=== PATIENT | female | born 1970 | race Caucasian/White ===

== ENCOUNTER 2023-07-02 16:30 | Emergency (ER) | payer BC, SELFPAY ==
[2023-07-02 16:33] VITALS: BP 121/74; PULSE 74; RESP 16; TEMP 36.1; O2SAT 95
--- NOTE | 2023-07-02 17:03 | ED.DENTAL ---
HPI - Dental/Oral General Chief complaint: Dental/Oral Stated complaint: Dental pain Time Seen by Provider: 07/02/23 17:02 Source: patient Mode of arrival: ambulatory Limitations: no limitations History of Present Illness HPI Narrative: Patient is a pleasant 52-year-old female with past medical history as noted below who presents emergency department today ambulatory with a steady gait for evaluation of left lower dental pain it is causing pain to her jaw and face. It started 2 days ago. States that she thinks she has an infected tooth. Denies any fever chills. Denies nausea or vomiting. Denies any chest pain, shortness of breath, headache, dizziness. Related Data Allergies Allergy/AdvReac Type Severity Reaction Status Date / Time No Known Allergies Allergy Verified 07/02/23 16:55 Review of Systems Review of Systems: All systems reviewed & are unremarkable except as noted in HPI and below Exam Narrative: GENERAL: Well-appearing, well-nourished, and in no acute distress. HEAD: Normocephalic, atraumatic. EYES: PERRLA ENT: there is significant gingival erythema/edema to the left lower 2nd molar with small abscess noted. no drainage. swallowing with ease. mild left lower facial/jaw swelling. dental cavity noted to molar. NECK: Supple. no adenopathy CHEST: Clear to auscultation. No respiratory distress. HEART: Regular rate and rhythm. SKIN: Warm, dry, no rash. NEURO: No focal deficits. Alert and oriented x3. PSYCH: Normal mood and affect. Course Vital Signs Vital signs: Vital Signs Temperature 97.0 F L 07/02/23 16:33 Pulse Rate 74 07/02/23 16:33 Respiratory Rate 16 07/02/23 16:33 Blood Pressure 121/74 07/02/23 16:33 Pulse Oximetry 95 07/02/23 16:33 Temperature 97.0 F L 07/02/23 16:33 Pulse Rate 74 07/02/23 16:33 Respiratory Rate 16 07/02/23 16:33 Blood Pressure 121/74 07/02/23 16:33 Pulse Oximetry 95 07/02/23 16:33 MDM - Dental/Oral MDM Narrative Medical decision making narrative: Patient with worsening dental pain and dental decay. small abscess noted. No systemic signs or symptoms. Antibiotics course provided.Verbal consent obtained from the patient after risks and benefits were explained. topical viscous lidocaine administered prior to I&D. small amount of bloody drainage noted, no purulent drainage noted. sterile technique maintained throughout. Follow-up instructions given to see dentist. discussed norco and only take for severe pain and that this can make her drowsy and be addictive to not drink, drive, or operate heavy machinery while taking it. Patient is nontoxic in appearance. Stable re-evaluation exam just before discharge. Patient in no acute distress. Vitals within normal limits. discussed return precautions with the patient including all the red flag signs or symptoms of when to return the patient. The patient verbalized understanding and was agreeable with discharge and close follow-up Differential Diagnosis Differential diagnosis: Likely gingival abscess, dental caries and dental abscess Medical Records Attestation: I reviewed the patient's medical records. Discharge Plan Discharge Clinical Impression: Dental infection, Pain, dental, Dental abscess Patient Disposition: Home, Self-Care Condition: Stable Instructions: Antibiotic Form, Dental Abscess (ED), Toothache (ED) Additional Instructions: Apply 2-5 mLs of viscous lidocaine solution to cotton ball and apply directly to tooth as needed for pain. Take Tylenol for [id number] pain.? Tylenol usually comes in 325 mg or 500 mg tablets.? Take 500 to 650mg every 6 hours for pain.? Do not exceed 4000 mg per 24-hour period.? only take norco for the severe pain. Take antibiotics as prescribed.? Floss especially around that tooth each time after eating to prevent the food from getting stuck and causing worsening pain/and or infection.? see dentist Emergency Departments (ED) provid
[2023-07-02] MEDS: LIDOCAINE HCL 2% VISC SOLN 15 ML UDC PO (17:16)
== END 2023-07-02 18:06 | disposition home or self-care (01) ==
PROVIDERS: Emergency Provider Nurse Practitioner
DX: K08.89 Other specified disorders of teeth and supporting structures (principal); K04.7 Periapical abscess without sinus
CPT/HCPCS: 99283